=== PATIENT | female | born 1975 | race Caucasian/White ===

== ENCOUNTER 2021-06-23 07:14 | Outpatient (CLI) | payer OTHER | END 2021-06-23 07:15 | disposition home or self-care (01) | LOC: CSHULT 07:14 | PROVIDERS: ATTEND Physician Assistant Medical | DX: K74.60 Unspecified cirrhosis of liver (principal); I85.00 Esophageal varices without bleeding; K80.20 Calculus of gallbladder without cholecystitis without obstruction | CPT/HCPCS: 76705 ==

== ENCOUNTER 2022-02-23 12:31 | Outpatient (CLI) | payer OTHER ==
[2022-02-23] MEDS ORDERED: Magnevist 469MG/ML 20 ML VIAL ONE (15:57)
== END 2022-02-23 12:32 | disposition home or self-care (01) ==
LOC: CSHMRI 12:31
PROVIDERS: ATTEND Obstetrics & Gynecology Gynecologic Oncology
DX: N83.201 Unspecified ovarian cyst, right side (principal); N80.1 Endometriosis of ovary
CPT/HCPCS: 72197; A9579

== ENCOUNTER 2022-05-27 09:49 | Outpatient (CLI) | payer OTHER | END 2022-05-27 09:50 | disposition home or self-care (01) | LOC: CSHULT 09:49 | PROVIDERS: ATTEND Physician Assistant Medical | DX: K74.60 Unspecified cirrhosis of liver (principal); I85.00 Esophageal varices without bleeding; K59.00 Constipation, unspecified; N28.89 Other specified disorders of kidney and ureter | CPT/HCPCS: 76705 ==

== ENCOUNTER 2025-02-11 09:39 | Outpatient (CLI) | payer MEDICAID ==
[2025-02-11 10:27] LABS: Hematocrit 41.6 % (34.9-44.5); Hemoglobin 14.5 g/dL (12.0-15.5); Mean Corpuscular Hemoglobin 30.1 pg (27.0-33.0); Mean Corpuscular Volume 86.3 fL (81.6-98.3); Platelet Count 102 10x3/uL (150-450); Red Blood Cell (RBC) Count 4.82 10x6/uL (3.90-5.03); White Blood Cell (WBC) Count 4.98 10x3/uL (3.5-10.5)
[2025-02-11 10:28] LABS: #Basophils 0.04 10x3/uL (0.0-0.2); #Eosinophils 0.19 10x3/uL (0.0-0.5); #Monocytes 0.34 10x3/uL (0.0-1.1); #Neutrophils 3.31 10x3/uL (1.5-8.4); %Basophils 0.8 % (0.0-2.0); %Eosinophils 3.8 % (0.0-6.0); %Lymphocytes 21.7 % (18.0-47.0); %Monocytes 6.8 % (0.0-10.0); %Neutrophils 66.5 % (40.0-75.0)
[2025-02-11 10:33] LABS: INR-International Normal Ratio 1.1; PTT 28.2 sec (22.0-33.0); Prothrombin Time 12.3 sec (9.5-12.1)
[2025-02-11 10:46] LABS: ALT (SGPT) 17 U/L (Less than 34); AST (SGOT) 36 U/L (11-34); Albumin 3.5 g/dL (3.1-4.5); Alkaline Phosphatase 97 U/L (40-110); Anion Gap 16 mmol/L (10-20); BUN (Urea Nitrogen) 19 mg/dL (9.8-20.1); Bilirubin, Direct 0.4 mg/dL (0.1-0.3); Bilirubin, Total 1.3 mg/dL (0.3-1.2); Calc. Creatinine Clearance 0 mL/min (70-130); Calcium 9.5 mg/dL (7.8-10.44); Carbon Dioxide 22 mmol/L (22-29); Chloride 105 mmol/L (98-107); Glucose 109 mg/dL (70-105); Potassium 3.9 mmol/L (3.5-5.1); Sodium 139 mmol/L (136-145)
== END 2025-02-11 09:40 | disposition home or self-care (01) ==
LOC: CSHLAB 09:39
PROVIDERS: ATTEND Surgery
DX: Z01.818 Encounter for other preprocedural examination (principal); R22.2 Localized swelling, mass and lump, trunk
CPT/HCPCS: 80048; 80076; 85025; 85610; 85730; 93005; 93010

== ENCOUNTER 2025-02-15 08:46 | Day surgery (SDC) | payer MEDICAID ==
[2025-02-11 09:35] VITALS: BMI 27.3
[2025-02-15] MEDS ORDERED: Acetaminophen 500 MG TAB ONE (09:11)
[2025-02-15] MEDS ORDERED: Bupivacaine/Epinephrine 0.25% 30 ML VIAL ONE (09:17)
[2025-02-15] MEDS ORDERED: PROPOFOL 20 ML ONE (09:39)
[2025-02-15] MEDS ORDERED: Rocuronium Bromide 10 MG/ML (10ML VIAL) ONE (09:41)
[2025-02-15] MEDS ORDERED: Lidocaine 1% PF 5 ML VIAL ONE (09:41)
[2025-02-15] MEDS ORDERED: Lidocaine 4% PF 5 ML AMP ONE (09:42)
[2025-02-15] MEDS ORDERED: CEFAZOLIN 1 GM VIAL ONE (10:33)
[2025-02-15] MEDS ORDERED: PHENYLEPHRINE-NS 100 MCG/ML 10 ML SYRINGE ONE (10:35)
[2025-02-15] MEDS ORDERED: Ondansetron PF 4 MG/2 ML Vial ONE (10:52)
[2025-02-15] MEDS ORDERED: SUGAMMADEX SODIUM 200 MG/2 ML VIAL ONE (10:57)
[2025-02-15] MEDS ORDERED: HYDROmorphone 0.5 MG/0.5 ML SYRINGE ONE (12:08)
[2025-02-15] MEDS ORDERED: oxyCODONE 5 MG TAB ONE (12:34)
== END 2025-02-15 13:15 | disposition home or self-care (01) ==
LOC: CSHSDC 08:46
PROVIDERS: ATTEND Surgery
PROC: 0JB70ZZ Excision of Back Subcutaneous Tissue and Fascia, Open Approach (ICD-10-PCS; principal; 2025-02-15)
DX: M79.89 Other specified soft tissue disorders (principal); Z87.891 Personal history of nicotine dependence; F41.9 Anxiety disorder, unspecified; F32.A Depression, unspecified; G40.909 Epilepsy, unspecified, not intractable, without status epilepticus; Z79.899 Other long term (current) drug therapy
CPT/HCPCS: 88304; J0690; J1100; J1171; J2250; J2405; J2704; J3010

== ENCOUNTER 2025-04-02 08:31 | Outpatient (CLI) | payer MEDICAID | END 2025-04-02 08:32 | disposition home or self-care (01) | LOC: CSHMRI 08:31 | PROVIDERS: ATTEND Physician Assistant Medical | DX: K74.60 Unspecified cirrhosis of liver (principal); I85.00 Esophageal varices without bleeding; K76.82 Hepatic encephalopathy; K76.6 Portal hypertension | CPT/HCPCS: 74183 ==

== ENCOUNTER 2025-06-14 11:14 | Observation (INO) | payer MEDICAID ==
[~2025-06-14 11:14] MED LIST: Iopamidol 370 76% 100 ML VIAL ONE
[2025-06-14 12:03] LABS: #Basophils Less than 0.03 10x3/uL (0.0-0.2); #Eosinophils 0.15 10x3/uL (0.0-0.5); #Monocytes 0.16 10x3/uL (0.0-1.1); #Neutrophils 2.36 10x3/uL (1.5-8.4); %Basophils 0.6 % (0.0-2.0); %Eosinophils 4.4 % (0.0-6.0); %Lymphocytes 21.1 % (18.0-47.0); %Monocytes 4.7 % (0.0-10.0); %Neutrophils 68.9 % (40.0-75.0); Hematocrit 39.2 % (34.9-44.5); Hemoglobin 13.7 g/dL (12.0-15.5); Mean Corpuscular Hemoglobin 29.3 pg (27.0-33.0); Mean Corpuscular Volume 83.8 fL (81.6-98.3); Platelet Count 78 10x3/uL (150-450); Red Blood Cell (RBC) Count 4.68 10x6/uL (3.90-5.03); White Blood Cell (WBC) Count 3.42 10x3/uL (3.5-10.5)
[2025-06-14 12:04] LABS: INR-International Normal Ratio 1.1; PTT 29.1 sec (22.0-33.0); Prothrombin Time 12.4 sec (9.5-12.1)
[2025-06-14 12:09] LABS: ALT (SGPT) 16 U/L (Less than 34); AST (SGOT) 43 U/L (11-34); Albumin 4.0 g/dL (3.1-4.5); Alkaline Phosphatase 120 U/L (40-110); Anion Gap 8 mmol/L (10-20); BUN (Urea Nitrogen) 20 mg/dL (9.8-20.1); Bilirubin, Total 0.8 mg/dL (0.3-1.2); Calc. Creatinine Clearance 0 mL/min (70-130); Calcium 10.0 mg/dL (7.8-10.44); Carbon Dioxide 27 mmol/L (22-29); Chloride 103 mmol/L (98-107); Globulin 3.2 g/dL (2.4-3.5); Glucose 95 mg/dL (70-105); Potassium 3.8 mmol/L (3.5-5.1); Sodium 134 mmol/L (136-145)
[2025-06-14 12:15] LABS: Troponin I 0.015 ng/mL (< 0.028)
[2025-06-14] MEDS ORDERED: Acetaminophen 325 MG TAB PO PRN (12:55)
[2025-06-14 13:10] LABS: BHCG - Serum Negative (NEGATIVE); Pregs Control Background? CLEAR/WHITE (CLR/WHITE); Pregs Control Bar Appear? YES (CONTROL BAR)
[2025-06-14] MEDS ORDERED: Aspirin Chewable 81 MG TAB ONE (13:32)
[2025-06-15] MEDS ORDERED: Aspirin 81 mg Enteric Coated Tablet PO SCH (09:00)
[2025-06-15] MEDS ORDERED: Enoxaparin 40 MG (0.4 mL) SYRINGE SC SCH (09:00)
== END 2025-06-14 15:00 | disposition home or self-care (01) ==
LOC: CSHERS 11:14 → CSHERHOLD 13:00
PROVIDERS: ADMIT Family Medicine; ATTEND Family Medicine
DX: G51.0 Bell's palsy (principal); G40.909 Epilepsy, unspecified, not intractable, without status epilepticus; F41.9 Anxiety disorder, unspecified; F32.A Depression, unspecified; N28.9 Disorder of kidney and ureter, unspecified; Z90.710 Acquired absence of both cervix and uterus; Z79.899 Other long term (current) drug therapy
CPT/HCPCS: 36416; 70450; 70496; 70498; 70551; 71045; 80053; 84443; 84484; 84703; 85025; 85610; 85730; 93005; 94760; G0378; Q9967